=== PATIENT | male | born 1995 | race Caucasian/White ===

== ENCOUNTER 2018-03-17 14:53 | Emergency (ER) | payer OTHER ==
[2018-03-17 14:56] VITALS: BMI 19.2
--- NOTE | 2018-03-17 16:11 | ED.PDOC ---
General ED Provider: Dr. NATANAEL MULLEN Chief Complaint: Psychiatric Complaint Stated Complaint: Suicidal ideation. States addicted to Meth and tired of fighing the struggles of addiction. His Partner is in a similar situation and contemplating suicide as well. He convinced him to come to hospital in an attempt to get help Time Seen by Physician: 15:40 (Is Medially cleared for transfer and admission to Psych Facility) Mode of Arrival: Walk-In Information Source: Patient Exam Limitations: No limitations Nursing and Triage Documentation Reviewed and Agree: Yes Does patient meet sepsis criteria?: No System Inflammatory Response Syndrome: Not Applicable Sepsis Protocol: For patient's 13 years and over: Temp is 96.8 and below OR 101 and greater Pulse >90 BPM Resp >20/minute Acutely Altered Mental Status Are patient's symptoms suggestive of a new infection, such as: -Pneumonia -Skin, Soft Tissue -Endocarditis -UTI -Bone, Joint Infection -Implantable Device -Acute Abdominal Infection -Wound Infection -Meningitis -Blood Stream Catheter Infection -Unknown Psychological Complaint Exam - Psychiatric Complaint/Exam Patient Complains Of: Present: Depression, Suicidal thoughts, Other (Meth addiction ) Onset/Duration: For several days in regard to thoughts of suicide Symptoms Are: Still present Timing: Constant Episodes Lasting: Hours Initial Severity: Moderate Current Severity: Severe Character: Present: Depressed, Fearful, Anxious, Frustrated Aggravating: Reports: Recent stress Associated Signs And Symptoms: Reports: Confused, Hallucinating, Appetite change Related History: Reports: Suicidal thoughts, Suicidal plan Completed Suicide Risk Factors: Male, , Living alone (homeless), Unemployed Patient Accompanied By: Family, Friend Patient In Custody Of Police: No Social Withdrawal Present: No Social Isolation Present: No Prior Suicide Attempt: Yes Injury From Prior Suicide Attempt: No Related Surgical History: Reports: None Patient Uncooperative For Exam: No Mood: Present: Depressed, Anxious Appearance: Present: Clean Thought Process: Present: Logical Insight: Present: Good Memory: Intact Judgement: Normal Danger To Others: No Patient Medically Stable For: Psych evaluation Differential Diagnoses: Depression, Suicidal Ideation, Other (substance abuse) Review of Systems - Review Of Systems Constitutional: Reports: No symptoms Eyes: Reports: No symptoms Ears, Nose, Mouth, Throat: Reports: No symptoms Respiratory: Reports: No symptoms Cardiac: Reports: No symptoms GI: Reports: No symptoms : Reports: No symptoms Musculoskeletal: Reports: No symptoms Skin: Reports: No symptoms Neurological: Reports: No symptoms, Anxiety, Depressed, Emotional problems Endocrine: Reports: No symptoms Hematologic/Lymphatic: Reports: No symptoms All Other Systems: Reviewed and Negative Past Medical History - Past Medical History Endocrine: Reports: None Cardiovascular: Reports: None Respiratory: Reports: None Hematological: Reports: None Gastrointestinal: Reports: None Genitourinary: Reports: None Neuro/Psych: Reports: Anxiety, Depression Musculoskeletal: Reports: None Cancer: Reports: None - Surgical History General Surgical History: Reports: None - Family History Family History: Reports: None - Social History Smoking Status: Current every day smoker, Heavy tobacco smoker Hx Substance Use: No Alcohol Screening: Occasionally - Immunizations Tetanus Shot up to Date: No Physical Exam - Physical Exam Appearance: Well-appearing, No pain distress, Well-nourished Ill-appearing: Mild Pain Distress: None Eyes: MARY BETH, EOMI, Conjunctiva clear ENT: Ears normal, Nose normal, Oropharynx normal Neck: Supple Respiratory: Airway patent, Breath sounds clear, Breath sounds equal, Respirations nonlabored Cardiovascular: RRR, Pulses normal, No rub, No murmur GI/: Soft, Nontender, No masses, Bowel sounds normal, No Organomegaly Musculoskeletal: Normal strength, ROM intact, No edema, No calf tenderness Skin: Warm, Dry, Normal color Neurological: Sensation intact, Motor intact, Reflexes intact, Cranial nerves intact, Alert, Oriented Psychiatric: Affect appropriate (flat affect), Mood appropriate (flattened mood but willing to accept help), Anxious, Depressed Physician Notification - Case Discussed Physician Notified: Dr Arias-Discussed case and current plan with attempted placement Time of Notification: 19:00 (Accepted patient) Critical Care Note - Critical Care Note Total Time (mins): 60 Course - Course Hematology/Chemistry: 03/17/18 16:30 03/17/18 16:30 Orders, Labs, Meds: Lab Review 03/17/18 03/17/18 03/17/18 15:30 15:30 16:30 WBC 9.17 RBC 5.00 Hgb 14.5 Hct 43.7 MCV 87.4 MCH 29.0 MCHC 33.2 RDW Coeff of Debora 12.5 Plt Count 387 Immature Gran % (Auto) 0.2 Neut % (Auto) 57.3 Lymph % (Auto) 31.8 Gilliam % (Auto) 7.6 Eos % (Auto) 2.3 Baso % (Auto) 0.8 Immature Gran # (Auto) 0.0 Neut # (Auto) 5.3 Lymph # (Auto) 2.9 Gilliam # (Auto) 0.7 Eos # (Auto) 0.2 Baso # (Auto) 0.1 Sodium Potassium Chloride Carbon Dioxide Anion Gap BUN Creatinine Estimated GFR (MDRD) BUN/Creatinine Ratio Glucose Calcium Total Bilirubin AST ALT Alkaline Phosphatase Total Protein Albumin Globulin Albumin/Globulin Ratio Urine Color Yellow Urine Clarity Clear Urine pH 7.5 Ur Specific [place] 1.015 Urine Protein Negative Urine Glucose (UA) Negative Urine Ketones Negative Urine Blood Negative Urine Nitrite Negative Urine Bilirubin Negative Urine Urobilinogen 0.2 Ur Leukocyte Esterase Negative Salicylate Level mg/dL Urine Opiates Screen Negative Ur Oxycodone Screen Negative Urine Methadone Screen Negative Ur Propoxyphene Screen Negative Acetaminophen Ur Barbiturates Screen Negative U Tricyclic Antidepress Negative Ur Phencyclidine Scrn Negative Ur Amphetamine Screen Negative U Methamphetamines Scrn Negative U Benzodiazepines Scrn Negative Urine Cocaine Screen Negative U Cannabinoids Screen Positive Plasma/Serum Alcohol Influ A Molecular Assay Influ B Molecular Assay 03/17/18 03/17/18 16:30 20:25 WBC RBC Hgb Hct MCV MCH MCHC RDW Coeff of Debora Plt Count Immature Gran % (Auto) Neut % (Auto) Lymph % (Auto) Gilliam % (Auto) Eos % (Auto) Baso % (Auto) Immature Gran # (Auto) Neut # (Auto) Lymph # (Auto) Gilliam # (Auto) Eos # (Auto) Baso # (Auto) Sodium 139.6 Potassium 3.90 Chloride 105.6 Carbon Dioxide 29.2 Anion Gap 8.70 BUN 11.6 Creatinine 0.72 Estimated GFR (MDRD) 137.00 BUN/Creatinine Ratio 16.11 Glucose 91.7 Calcium 9.06 Total Bilirubin 0.20 AST 19.5 ALT 18.3 Alkaline Phosphatase 63.6 Total Protein 6.79 Albumin 4.12 Globulin 2.67 Albumin/Globulin Ratio 1.54 Urine Color Urine Clarity Urine pH Ur Specific [place] Urine Protein Urine Glucose (UA) Urine Ketones Urine Blood Urine Nitrite Urine Bilirubin Urine Urobilinogen Ur Leukocyte Esterase Salicylate Level mg/dL < 1.00 Urine Opiates Screen Ur Oxycodone Screen Urine Methadone Screen Ur Propoxyphene Screen Acetaminophen < 10.0 L Ur Barbiturates Screen U Tricyclic Antidepress Ur Phencyclidine Scrn Ur Amphetamine Screen U Methamphetamines Scrn U Benzodiazepines Scrn Urine Cocaine Screen U Cannabinoids Screen Plasma/Serum Alcohol < 10.0 Influ A Molecular Assay Negative by naat Influ B Molecular Assay Negative by naat Orders Category Date Time Status EKG-(ED ONLY) Stat CARDIO 03/17/18 16:10 Completed ED [employer]IST APPLIED ONCE EMERGENCY 03/17/18 16:10 Active ACETAMINOPHEN Stat LAB 03/17/18 16:30 Completed BLOOD ALCOHOL Stat LAB 03/17/18 16:30 Completed CBC W/ AUTO DIFF Stat LAB 03/17/18 16:30 Completed COMPREHENSIVE METABOLIC PANEL Stat LAB 03/17/18 16:30 Completed DRUG SCREEN, URINE, RAPID Stat LAB 03/17/18 15:30 Completed FLU A & B MOLECULAR [FLU A/B MOLECULAR] Stat LAB 03/17/18 20:25 Completed SALICYLATE Stat LAB 03/17/18 16:30 Completed URINALYSIS C & S IF INDICATED Stat LAB 03/17/18 15:30 Completed Vital Signs: Temp Pulse Resp BP Pulse Ox 03/17/18 22:44 98.2 F 96 H 18 134/94 H 98 03/17/18 14:54 98.8 F 112 H 18 146/82 H 98 Departure - Departure Time of Disposition: 19:15 (Is Medially cleared for transfer and admission to Psych Facility) Disposition: TSF TO PSYCH HOSP/UNIT Discharge Problem: Suicidal ideation, Anxiety with depression, Methamphetamine abuse Condition: Fair Pt referred to PMD for follow-up: Yes (psych facility) IPMP verified?: No Additional Instructions: Patient cleared for admission to psych facility Allergies/Adverse Reactions: Allergies No Known Allergies Allergy (Verified 03/17/18 14:56) Home Medications: Ambulatory Orders Clonazepam [Klonopin] 0.5 mg PO TID 03/17/18 Divalproex Sodium 500 mg PO DAILY 03/17/18 Disposition Discussed With: Patient, Family Additional Information: Mental health worker contacted and present in department assisting with arranging for transfer to appropriated mental health facility
[2018-03-17 22:45] VITALS: BP 134/94; TEMP 98.2
== END 2018-03-17 23:15 ==
LOC: ED 14:53
DX: R45.851 Suicidal ideations (principal); F15.10 Other stimulant abuse, uncomplicated; F41.9 Anxiety disorder, unspecified; F32.9 Major depressive disorder, single episode, unspecified; F17.210 Nicotine dependence, cigarettes, uncomplicated
CPT/HCPCS: 36415; 80053; 80306; 80307; 81001; 85025; 87502; 93005; 93010; 99285